=== PATIENT | male | born 1990 | race Caucasian/White ===

== ENCOUNTER 2018-02-17 14:05 | Outpatient (CLI) | payer OTHER | END 2018-02-17 14:15 | disposition home or self-care (01) | LOC: RAD 14:05 | DX: M79.641 Pain in right hand (principal) ==

== ENCOUNTER → 2018-02-17 | Outpatient (CLI) | payer OTHER ==
[~2018-02-17] MED LIST: SULFAZINE500 MG PO
== END | disposition home or self-care (01) ==
LOC: EDSEX 12:14 → PPHC 12:14
DX: M79.641 Pain in right hand (principal)